=== PATIENT | female | born 1945 | race Caucasian/White ===

== ENCOUNTER 2023-08-23 15:03 | Inpatient (IN) | payer BC ==
[~2023-08-23] VITALS: Ht 157.5 cm; Wt 75.7 kg
[2023-08-23 15:18] VITALS: BP_SYST 150; PULSE 67; RESP 16; TEMP 98; O2SAT 95
[2023-08-23] MEDS: NACL 0.9% 1,000 ML IV ONE ×2 (16:31→18:20)
[2023-08-23 16:45] LABS: BASOPHILS % (AUTO) 0.3 % (0.0-2.0); EOSINOPHILS # (AUTO) 0.3 K/uL (0.0-0.4); HEMATOCRIT 31.6 % (36-48); HEMOGLOBIN 10.5 g/dL (12.0-16.0); LYMPHOCYTES # (AUTO) 0.9 K/uL (1.0-5.5); LYMPHOCYTES % (AUTO) 12.9 % (20.5-51.5); MEAN CORPUSCULAR HEMOGLOBIN 30 pg (27-31); MEAN CORPUSCULAR HGB CONC 33 % (32-36); MEAN CORPUSCULAR VOLUME 90 fL (79.0-98.0); MONOCYTES # (AUTO) 0.6 K/uL (0.0-1.0); MONOCYTES % (AUTO) 8.7 % (1.7-9.3); NEUTROPHILS # (AUTO) 5.1 K/uL (1.8-7.7); NEUTROPHILS % (AUTO) 74.1 % (40.0-70.0); PLATELET COUNT (AUTO) 255 K/uL (130-430); RED CELL DISTRIBUTION WIDTH 17.3 % (9.0-15.0); WHITE BLOOD COUNT (AUTO) 6.9 K/uL (4.8-10.8)
[2023-08-23 16:57] LABS: PROTHROMBIN TIME 10.5 SECS (9.5-12.5)
[2023-08-23 17:02] LABS: ALANINE AMINOTRANSFERASE 7 U/L (12-78); ALBUMIN 2.8 g/dL (3.4-4.8); ANION GAP 18 (5-15); ASPARTATE AMINOTRANSFERASE 10 U/L (10-37); CALCIUM 8.6 mg/dL (8.4-11.0); CARBON DIOXIDE 14 mmol/L (23-29); CHLORIDE 107 mmol/L (98-107); CREATININE 3.07 mg/dL (0.55-1.30); GLUCOSE 103 mg/dL (74-106); POTASSIUM 4.8 mmol/L (3.5-5.1); SODIUM SERUM 139 mmol/L (136-145); TOTAL BILIRUBIN 0.3 mg/dL (0.0-1.0); UREA NITROGEN, BLOOD 43 mg/dL (8-21)
[2023-08-23 17:11] LABS: BILIRUBIN,DIRECT 0.1 mg/dL (0.0-0.3); CREATINE KINASE, TOTAL 10 U/L (26-192); FREE T4 (FREE THYROXINE) 1.2 ng/dl (0.8-1.5); THYROID STIMULATING HORMONE 2.12 uIu/mL (0.36-3.74)
[2023-08-23 17:50] LABS: ACETONE, SERUM NEGATIVE (NEGATIVE)
[2023-08-23] MEDS ORDERED: 0.45% NACL 1,000 ML IV SCH (18:15)
[2023-08-23 18:35] LABS: BILIRUBIN,URINE NEGATIVE (NEGATIVE); BLOOD, URINE 1+ (NEGATIVE); COLOR,URINE YELLOW (YELLOW); GLUCOSE,URINE NEGATIVE (NEGATIVE); KETONES,URINE NEGATIVE (NEGATIVE); LEUKOCYTE ESTERASE ,URINE 2+ (NEGATIVE); NITRITE, URINE NEGATIVE (NEGATIVE); PROTEIN URINE 1+ (NEGATIVE); UROBILINOGEN,URINE 0.2 (0.2-1.0)
[2023-08-23 19:20] LABS: CLARITY/URINE HAZY (CLEAR)
[2023-08-23 20:05] LABS: BACTERIA,URINE FEW /HPF (None Seen); MUCUS,URINE None Seen /LPF (None Seen); RBC,URINE 0-3 /HPF (0-3)
[2023-08-23] MEDS: HYDROcodone/ACETAMIN 5-325 MG TAB (NORCO/ VICODIN) PO PRN (20:14)
[2023-08-23] MEDS ORDERED: LOSA-413 PO (20:29)
[2023-08-23] MEDS ORDERED: METO-306 (20:29)
[2023-08-23 22:30] VITALS: O2SAT 97
[2023-08-23 22:48] VITALS: BP_SYST 158; PULSE 88; RESP 20; TEMP 97.5
[2023-08-24 00:20] VITALS: BP_SYST 158; PULSE 81; RESP 20; TEMP 98.5; O2SAT 97
[2023-08-24 06:14] LABS: BASOPHILS % (AUTO) 0.4 % (0.0-2.0); EOSINOPHILS # (AUTO) 0.3 K/uL (0.0-0.4); EOSINOPHILS % (AUTO) 4.7 % (0.0-4.0); HEMATOCRIT 29.9 % (36-48); HEMOGLOBIN 9.8 g/dL (12.0-16.0); LYMPHOCYTES # (AUTO) 0.8 K/uL (1.0-5.5); LYMPHOCYTES % (AUTO) 12.1 % (20.5-51.5); MEAN CORPUSCULAR HEMOGLOBIN 30 pg (27-31); MEAN CORPUSCULAR HGB CONC 33 % (32-36); MEAN CORPUSCULAR VOLUME 91 fL (79.0-98.0); MONOCYTES # (AUTO) 0.5 K/uL (0.0-1.0); MONOCYTES % (AUTO) 7.8 % (1.7-9.3); NEUTROPHILS # (AUTO) 4.7 K/uL (1.8-7.7); PLATELET COUNT (AUTO) 236 K/uL (130-430); RED BLOOD CELL COUNT(AUTO) 3.29 MIL/uL (4.2-6.2); RED CELL DISTRIBUTION WIDTH 17.4 % (9.0-15.0); WHITE BLOOD COUNT (AUTO) 6.3 K/uL (4.8-10.8)
[2023-08-24 06:44] LABS: ANION GAP 18 (5-15); CARBON DIOXIDE 12 mmol/L (23-29); CHLORIDE 111 mmol/L (98-107); GLUCOSE 96 mg/dL (74-106); POTASSIUM 4.3 mmol/L (3.5-5.1); SODIUM SERUM 141 mmol/L (136-145); UREA NITROGEN, BLOOD 40 mg/dL (8-21)
[2023-08-24 08:00] VITALS: BP_SYST 154; PULSE 84; RESP 18; TEMP 98.5; O2SAT 97
[2023-08-24 09:12] VITALS: O2SAT 97
[2023-08-24 11:56] VITALS: BP_SYST 155; PULSE 81; RESP 17; TEMP 99.1; O2SAT 98
[2023-08-24 17:23] VITALS: BP_SYST 170; PULSE 79; RESP 16; TEMP 99.1; O2SAT 100
[2023-08-24 20:00] VITALS: BP_SYST 152; PULSE 89; RESP 18; TEMP 97.6; O2SAT 97
[2023-08-24] MEDS: ACETAMINOPHEN 325 MG TABLET PO PRN (22:46)
[2023-08-25] VITALS: BP_SYST 146; PULSE 80; RESP 20; TEMP 97.7; O2SAT 98
[2023-08-25 07:14] LABS: BASOPHILS % (AUTO) 0.4 % (0.0-2.0); EOSINOPHILS # (AUTO) 0.2 K/uL (0.0-0.4); HEMATOCRIT 29.8 % (36-48); HEMOGLOBIN 9.7 g/dL (12.0-16.0); LYMPHOCYTES # (AUTO) 1.5 K/uL (1.0-5.5); LYMPHOCYTES % (AUTO) 28.8 % (20.5-51.5); MEAN CORPUSCULAR HEMOGLOBIN 29 pg (27-31); MEAN CORPUSCULAR HGB CONC 33 % (32-36); MEAN CORPUSCULAR VOLUME 90 fL (79.0-98.0); MONOCYTES # (AUTO) 0.5 K/uL (0.0-1.0); MONOCYTES % (AUTO) 9.8 % (1.7-9.3); PLATELET COUNT (AUTO) 205 K/uL (130-430); RED BLOOD CELL COUNT(AUTO) 3.29 MIL/uL (4.2-6.2); RED CELL DISTRIBUTION WIDTH 17.4 % (9.0-15.0); WHITE BLOOD COUNT (AUTO) 5.3 K/uL (4.8-10.8)
[2023-08-25 08:09] LABS: ANION GAP 15 (5-15); CALCIUM 8.5 mg/dL (8.4-11.0); CARBON DIOXIDE 14 mmol/L (23-29); CHLORIDE 109 mmol/L (98-107); CREATININE 2.48 mg/dL (0.55-1.30); GLUCOSE 87 mg/dL (74-106); POTASSIUM 4.2 mmol/L (3.5-5.1); SODIUM SERUM 138 mmol/L (136-145); UREA NITROGEN, BLOOD 39 mg/dL (8-21)
[2023-08-25 09:15] VITALS: O2SAT 100
[2023-08-25] MEDS ORDERED: ONDANSETRON HCL 4 MG/2 ML VIAL IVP PRN (11:00)
[2023-08-25] MEDS ORDERED: LORazepam 2 MG/ML VIAL IVP PRN (11:00)
[2023-08-25] MEDS ORDERED: NALOXONE HCL 0.4 MG/ML AMP (NARCAN) IVP PRN (11:00)
[2023-08-25 11:30] VITALS: BP_SYST 153; PULSE 60; RESP 17; TEMP 97.5; O2SAT 96
[2023-08-25] MEDS: D5/0.45 NS 1,000 ML IV SCH (13:43)
[2023-08-25] MEDS: METOPROLOL SUCCINATE 50 MG TAB.SR.24H (TOPROL XL) PO ONE (15:28)
[2023-08-25 15:29] VITALS: BP_SYST 149; PULSE 69; RESP 17; TEMP 97.5; O2SAT 100
[2023-08-25 16:14] VITALS: BP_SYST 136; BP_SYST 149; PULSE 67; PULSE 69; RESP 17; TEMP 97; TEMP 97.5; O2SAT 100; O2SAT 97
[2023-08-25 20:00] VITALS: BP_SYST 157; PULSE 70; RESP 18; TEMP 98.6; O2SAT 99
[2023-08-25] MEDS: LOSARTAN POTASSIUM 50 MG TABLET (COZAAR) PO SCH (22:13)
[2023-08-26 00:01] VITALS: BP_SYST 155; PULSE 70; RESP 18; TEMP 98.9; O2SAT 98
[2023-08-26 07:28] LABS: BASOPHILS % (AUTO) 0.4 % (0.0-2.0); EOSINOPHILS # (AUTO) 0.3 K/uL (0.0-0.4); HEMATOCRIT 28.9 % (36-48); HEMOGLOBIN 9.4 g/dL (12.0-16.0); LYMPHOCYTES # (AUTO) 1.9 K/uL (1.0-5.5); LYMPHOCYTES % (AUTO) 28.4 % (20.5-51.5); MEAN CORPUSCULAR HEMOGLOBIN 29 pg (27-31); MEAN CORPUSCULAR HGB CONC 33 % (32-36); MEAN CORPUSCULAR VOLUME 90 fL (79.0-98.0); MONOCYTES # (AUTO) 0.8 K/uL (0.0-1.0); MONOCYTES % (AUTO) 11.2 % (1.7-9.3); NEUTROPHILS # (AUTO) 3.8 K/uL (1.8-7.7); PLATELET COUNT (AUTO) 194 K/uL (130-430); RED BLOOD CELL COUNT(AUTO) 3.21 MIL/uL (4.2-6.2); RED CELL DISTRIBUTION WIDTH 17.1 % (9.0-15.0); WHITE BLOOD COUNT (AUTO) 6.7 K/uL (4.8-10.8)
[2023-08-26 07:44] LABS: ANION GAP 13 (5-15); CALCIUM 8.1 mg/dL (8.4-11.0); CARBON DIOXIDE 15 mmol/L (23-29); CHLORIDE 108 mmol/L (98-107); CREATININE 2.03 mg/dL (0.55-1.30); GLUCOSE 94 mg/dL (74-106); POTASSIUM 3.8 mmol/L (3.5-5.1); SODIUM SERUM 136 mmol/L (136-145); UREA NITROGEN, BLOOD 35 mg/dL (8-21)
[2023-08-26 07:55] VITALS: BP_SYST 147; PULSE 71; RESP 16; TEMP 98.1; O2SAT 100
[2023-08-26] MEDS: METOPROLOL SUCCINATE 50 MG TAB.SR.24H (TOPROL XL) PO SCH (09:13)
[2023-08-26 09:15] VITALS: O2SAT 100
[2023-08-26 12:29] VITALS: BP_SYST 128; PULSE 67; RESP 17; TEMP 98.3; O2SAT 98
[2023-08-26] MEDS: MAGNESIUM SULFATE 50 ML IV ONE (14:39)
[2023-08-26 17:17] VITALS: BP_SYST 134; PULSE 67; RESP 18; TEMP 98.6; O2SAT 98
[2023-08-26] MEDS: JECT IV SCH (18:00)
[2023-08-26] MEDS: SODIUM BICARBONATE 8.4% IV SCH (18:00)
[2023-08-26] MEDS: [UNRECOGNIZED DRUG - OTHER] IV SCH (18:00)
[2023-08-26] MEDS: D5 IV SCH (18:00)
[2023-08-27] VITALS (7 sets, daily range): BP systolic 124–146; PULSE 66–75; RESP 16–18; TEMP 97.8–99.1; O2SAT 94–100
[2023-08-27 08:16] LABS: BASOPHILS % (AUTO) 0.4 % (0.0-2.0); EOSINOPHILS # (AUTO) 0.3 K/uL (0.0-0.4); EOSINOPHILS % (AUTO) 4.3 % (0.0-4.0); HEMATOCRIT 26.9 % (36-48); HEMOGLOBIN 8.9 g/dL (12.0-16.0); LYMPHOCYTES % (AUTO) 32.3 % (20.5-51.5); MEAN CORPUSCULAR HEMOGLOBIN 30 pg (27-31); MEAN CORPUSCULAR HGB CONC 33 % (32-36); MEAN CORPUSCULAR VOLUME 89 fL (79.0-98.0); MONOCYTES # (AUTO) 0.7 K/uL (0.0-1.0); NEUTROPHILS # (AUTO) 3.2 K/uL (1.8-7.7); PLATELET COUNT (AUTO) 175 K/uL (130-430); RED BLOOD CELL COUNT(AUTO) 3.01 MIL/uL (4.2-6.2); RED CELL DISTRIBUTION WIDTH 17.8 % (9.0-15.0); WHITE BLOOD COUNT (AUTO) 6.2 K/uL (4.8-10.8)
[2023-08-27 08:51] LABS: ALANINE AMINOTRANSFERASE 13 U/L (12-78); ALBUMIN 2.1 g/dL (3.4-4.8); ANION GAP 13 (5-15); ASPARTATE AMINOTRANSFERASE 12 U/L (10-37); CALCIUM 7.8 mg/dL (8.4-11.0); CARBON DIOXIDE 16 mmol/L (23-29); CHLORIDE 107 mmol/L (98-107); CREATININE 2.02 mg/dL (0.55-1.30); GLUCOSE 105 mg/dL (74-106); POTASSIUM 3.8 mmol/L (3.5-5.1); SODIUM SERUM 136 mmol/L (136-145); TOTAL BILIRUBIN 0.2 mg/dL (0.0-1.0); TOTAL PROTEIN, SERUM 5.4 g/dL (6.4-8.3); UREA NITROGEN, BLOOD 37 mg/dL (8-21)
[2023-08-27] MEDS: PANTOPRAZOLE SODIUM 40 MG TAB PO SCH (10:02)
[2023-08-27] MEDS: GABAPENTIN 100 MG CAPSULE PO SCH (15:37)
[2023-08-28] VITALS: BP_SYST 147; PULSE 83; RESP 18; TEMP 98.3; O2SAT 97
[2023-08-28 07:57] VITALS: BP_SYST 152; PULSE 64; RESP 18; TEMP 98.6; O2SAT 99
[2023-08-28 07:59] LABS: BASOPHILS % (AUTO) 0.4 % (0.0-2.0); EOSINOPHILS # (AUTO) 0.2 K/uL (0.0-0.4); HEMATOCRIT 27.4 % (36-48); HEMOGLOBIN 8.9 g/dL (12.0-16.0); LYMPHOCYTES # (AUTO) 2.3 K/uL (1.0-5.5); LYMPHOCYTES % (AUTO) 37.1 % (20.5-51.5); MEAN CORPUSCULAR HEMOGLOBIN 29 pg (27-31); MEAN CORPUSCULAR HGB CONC 33 % (32-36); MEAN CORPUSCULAR VOLUME 89 fL (79.0-98.0); MONOCYTES # (AUTO) 0.7 K/uL (0.0-1.0); MONOCYTES % (AUTO) 11.6 % (1.7-9.3); NEUTROPHILS # (AUTO) 2.9 K/uL (1.8-7.7); NEUTROPHILS % (AUTO) 46.9 % (40.0-70.0); PLATELET COUNT (AUTO) 173 K/uL (130-430); RED BLOOD CELL COUNT(AUTO) 3.07 MIL/uL (4.2-6.2); RED CELL DISTRIBUTION WIDTH 17.8 % (9.0-15.0); WHITE BLOOD COUNT (AUTO) 6.2 K/uL (4.8-10.8)
[2023-08-28 08:14] LABS: ANION GAP 12 (5-15); CARBON DIOXIDE 19 mmol/L (23-29); CHLORIDE 107 mmol/L (98-107); GLUCOSE 98 mg/dL (74-106); POTASSIUM 3.8 mmol/L (3.5-5.1); SODIUM SERUM 138 mmol/L (136-145)
[2023-08-28 08:15] LABS: ALANINE AMINOTRANSFERASE 15 U/L (12-78); ALBUMIN 2.1 g/dL (3.4-4.8); ASPARTATE AMINOTRANSFERASE 15 U/L (10-37); CALCIUM 7.9 mg/dL (8.4-11.0); CREATININE 1.82 mg/dL (0.55-1.30); TOTAL BILIRUBIN 0.2 mg/dL (0.0-1.0); TOTAL PROTEIN, SERUM 5.5 g/dL (6.4-8.3); UREA NITROGEN, BLOOD 32 mg/dL (8-21)
[2023-08-28 10:00] VITALS: O2SAT 98
[2023-08-28 12:52] VITALS: BP_SYST 147; PULSE 76; RESP 16; TEMP 99.1; O2SAT 97
[2023-08-28] MEDS ORDERED: guaiFENesin 200 MG/10 ML UDC PO PRN (15:00)
[2023-08-28 16:34] VITALS: BP_SYST 148; PULSE 79; RESP 16; TEMP 100.2; O2SAT 98
[2023-08-28 20:00] VITALS: BP_SYST 163; PULSE 75; RESP 16; TEMP 99.4; O2SAT 99
[2023-08-29] VITALS: BP_SYST 122; PULSE 77; RESP 16; TEMP 97.9; O2SAT 97
[2023-08-29 08:00] VITALS: O2SAT 99
[2023-08-29 08:09] VITALS: BP_SYST 122; PULSE 84; RESP 16; TEMP 98; O2SAT 97
[2023-08-29 08:36] LABS: BASOPHILS % (AUTO) 0.3 % (0.0-2.0); EOSINOPHILS # (AUTO) 0.2 K/uL (0.0-0.4); EOSINOPHILS % (AUTO) 2.5 % (0.0-4.0); LYMPHOCYTES # (AUTO) 2.5 K/uL (1.0-5.5); LYMPHOCYTES % (AUTO) 36.4 % (20.5-51.5); MEAN CORPUSCULAR HEMOGLOBIN 30 pg (27-31); MEAN CORPUSCULAR HGB CONC 33 % (32-36); MEAN CORPUSCULAR VOLUME 91 fL (79.0-98.0); MONOCYTES # (AUTO) 0.7 K/uL (0.0-1.0); MONOCYTES % (AUTO) 10.1 % (1.7-9.3); NEUTROPHILS # (AUTO) 3.5 K/uL (1.8-7.7); NEUTROPHILS % (AUTO) 50.7 % (40.0-70.0); PLATELET COUNT (AUTO) 182 K/uL (130-430); RED BLOOD CELL COUNT(AUTO) 2.98 MIL/uL (4.2-6.2); RED CELL DISTRIBUTION WIDTH 17.5 % (9.0-15.0); WHITE BLOOD COUNT (AUTO) 6.9 K/uL (4.8-10.8)
[2023-08-29 09:15] LABS: ALANINE AMINOTRANSFERASE 15 U/L (12-78); ALBUMIN 2.1 g/dL (3.4-4.8); ANION GAP 10 (5-15); ASPARTATE AMINOTRANSFERASE 13 U/L (10-37); CALCIUM 7.6 mg/dL (8.4-11.0); CARBON DIOXIDE 23 mmol/L (23-29); CHLORIDE 106 mmol/L (98-107); CREATININE 1.79 mg/dL (0.55-1.30); GLUCOSE 130 mg/dL (74-106); POTASSIUM 4.2 mmol/L (3.5-5.1); SODIUM SERUM 139 mmol/L (136-145); TOTAL BILIRUBIN 0.3 mg/dL (0.0-1.0); TOTAL PROTEIN, SERUM 5.5 g/dL (6.4-8.3); UREA NITROGEN, BLOOD 32 mg/dL (8-21)
[2023-08-29] MEDS: ACYCLOVIR OINTMENT Non-Formulay 30 GM TP SCH (11:25)
[2023-08-29 12:37] VITALS: BP_SYST 144; PULSE 68; RESP 16; TEMP 98.1; O2SAT 95
[2023-08-29] MEDS ORDERED: [UNRECOGNIZED DRUG - CODE] TP (13:19)
[2023-08-29] MEDS ORDERED: NEU100 PO (13:19)
[2023-08-29] MEDS ORDERED: PRO40 PO (13:19)
[2023-08-29] MEDS ORDERED: ACYC400T19 PO (13:26)
[2023-08-29 17:06] VITALS: BP_SYST 149; PULSE 68; RESP 18; TEMP 99.2; O2SAT 99
[2023-08-29] MEDS: EPOETIN ALFA-EPBX 4,000 UNITS/ML VIAL SUBCUT ONE (18:15)
[2023-08-29 20:00] VITALS: BP_SYST 161; PULSE 76; RESP 16; TEMP 97.9; O2SAT 96
[2023-08-29] MEDS: HYDROcodone/ACETAMIN 10-325 MG TAB PO PRN (21:25)
[2023-08-30 00:52] VITALS: BP_SYST 123; PULSE 68; RESP 18; TEMP 98.1; O2SAT 98
[2023-08-30 05:22] VITALS: BP_SYST 150; PULSE 67; RESP 20
[2023-08-30 08:10] VITALS: BP_SYST 147; PULSE 72; RESP 15; TEMP 97.2; O2SAT 97
[2023-08-30 10:15] VITALS: O2SAT 95
[2023-08-30 10:40] VITALS: BP_SYST 133; PULSE 57; RESP 16; TEMP 97.8; O2SAT 98
[2023-08-30 17:08] VITALS: BP_SYST 150; PULSE 66; RESP 17; TEMP 97.9; O2SAT 95
== END 2023-08-30 18:40 | disposition home health service (06) | DRG 699 ==
LOC: SED 15:03 → SMU 18:07
PROVIDERS: ADMIT Specialist; ATTEND Specialist
DX: N14.19 Nephropathy induced by other drugs, medicaments and biological substances (principal); N39.0 Urinary tract infection, site not specified; B02.9 Zoster without complications; N17.9 Acute kidney failure, unspecified; E86.0 Dehydration; E83.41 Hypermagnesemia; E83.52 Hypercalcemia; D63.1 Anemia in chronic kidney disease; N18.31 Chronic kidney disease, stage 3a; T37.5X5A Adverse effect of antiviral drugs, initial encounter; Y92.89 Other specified places as the place of occurrence of the external cause; Z88.2 Allergy status to sulfonamides; D64.9 Anemia, unspecified
CPT/HCPCS: 36415; 70450-TC; 70551; 71045; 76770; 80048; 80053; 80076; 81000; 81001; 81015; 82009; 82550; 83605; 83735; 84100; 84439; 84443; 84484; 85025; 85610; 85730; 87086; 93005; 97116-GP; 97163-GP; 99285; J3475; Q5106